=== PATIENT | male | born 1985 | race Caucasian/White ===

== ENCOUNTER → 2018-03-15 | Emergency (ER) | payer OTHER ==
[~2018-03-15] VITALS: Ht 172.7 cm; Wt 102.1 kg
[2018-03-15 06:27] VITALS: BP 135/79
== END ==
LOC: M.ERS 05:22
DX: S81.811A Laceration without foreign body, right lower leg, initial encounter (principal); W26.8XXA Contact with other sharp object(s), not elsewhere classified, initial encounter; Y93.89 Activity, other specified; Y92.89 Other specified places as the place of occurrence of the external cause; Y99.8 Other external cause status

== ENCOUNTER 2019-11-25 08:27 | Emergency (ER) | payer OTHER ==
[~2019-11-25] VITALS: Ht 172.7 cm; Wt 102.1 kg
[2019-11-25] MEDS ORDERED: FLEXERIL PO (10:36)
[2019-11-25] MEDS ORDERED: NORCO 5-325 TA1 EAC1 PO (10:36)
[2019-11-25 10:45] VITALS: BP 126/74
== END 2019-11-25 10:46 | disposition home or self-care (01) ==
LOC: M.ERS 08:27
DX: S16.1XXA Strain of muscle, fascia and tendon at neck level, initial encounter (principal); S39.012A Strain of muscle, fascia and tendon of lower back, initial encounter; M25.561 Pain in right knee; V49.49XA Driver injured in collision with other motor vehicles in traffic accident, initial encounter; Y93.89 Activity, other specified; Y92.488 Other paved roadways as the place of occurrence of the external cause; Y99.8 Other external cause status